=== PATIENT | female | born 1995 | race Caucasian/White ===

== ENCOUNTER 2024-10-26 07:30 | Emergency (ER) | payer OTHER ==
[~2024-10-26] VITALS: Ht 177.8 cm; Wt 52.2 kg
[2024-10-26] MEDS ORDERED: MAG HYDROX/AL HYDROX/SIMETH 30 ML LIQUID UDC ONE (09:13)
[2024-10-26] MEDS: MAG HYDROX/AL HYDROX/SIMETH 30 ML LIQUID UDC PO ONE (09:16)
[2024-10-26 09:18] VITALS: BP 119/60; O2SAT 100
== END 2024-10-26 09:19 | disposition home or self-care (01) ==
LOC: ER 07:45
DX: J69.0 Pneumonitis due to inhalation of food and vomit (principal); J04.0 Acute laryngitis; M54.2 Cervicalgia; R07.9 Chest pain, unspecified; E03.9 Hypothyroidism, unspecified
CPT/HCPCS: 70360; 71045; A4606; A4663